=== PATIENT | male | born 1990 | race African-American/Black ===

== ENCOUNTER 2016-03-27 14:52 | Emergency (ER) | payer OTHER ==
[~2016-03-27] VITALS: Ht 177.8 cm; Wt 86.2 kg
[2016-03-27 15:16] VITALS: BP 165/102
--- NOTE | 2016-03-27 15:36 | Emergency Room Report ---
History of Present Illness General Chief Complaint: Pain Source: Patient Present Illness HPI The patient is a 26-year-old male presenting with left-sided tooth pain. The patient states that he was seen by a dentist 2 days prior for root canal and wisdom tooth removal. The patient states that he did not receive any pain medications by the dentist. Pain is now described as a 10 out of 10 dull ache to that side it does not radiate.The patient denies any other symptoms including nausea, vomiting, fever, chills, headache, blurred vision, dizziness, sore throat. Allergies: Coded Allergies: No Known Allergies (Unverified , 03/27/16) Patient History Past Medical History: see triage record Pertinent Family History: none Reviewed Nursing Documentation: PMH: Agreed, PSxH: Agreed Nursing Documentation-PMH Past Medical History: No History, Except For Review of Systems All Other Systems: negative except mentioned in HPI Physical Exam Vital Signs Date Time Temp Pulse Resp B/P Pulse Ox O2 Delivery O2 Flow Rate FiO2 03/27/16 15:16 98.8 97 18 165/102 99 Room Air Sp02 EP Interpretation: reviewed, normal General Appearance: no apparent distress, alert, GCS 15, non-toxic Head: normocephalic, atraumatic Eyes: bilateral eye PERRL, bilateral eye normal inspection ENT: hearing grossly normal, normal pharynx, no angioedema, normal voice, uvula midline, moist mucus membranes, other - L lower molars: sutures in placed. TTP. No fluctuance or erythema. No bleeding Neck: full range of motion, supple/symm/no masses Respiratory: chest non-tender, lungs clear, normal breath sounds, no wheezing, speaking full sentences Musculoskeletal: back normal, gait/station normal, normal range of motion, non- tender Neurologic: alert, oriented x3, responsive, motor strength/tone normal, sensory intact, speech normal Psychiatric: judgement/insight normal, memory normal, mood/affect normal, no suicidal/homicidal ideation Skin: normal color, no rash, warm/dry, well hydrated Lymphatic: no adenopathy Medical Decision Making PA Attestation Dr. De León is my supervising physician. Patient management was discussed with my supervising physician Diagnostic Impression: Primary Impression: Pain, dental ER Course The patient is a 26-year-old male presenting with left-sided tooth pain. Diagnoses considered but not limited to: Dental azeb, dental abscess, toothache , gingivitis PE: afebrile. NAD L lower molars: sutures in placed. TTP. No fluctuance or erythema. No bleeding. Otherwise HEENT exam is unremarkable. Uvula midline. No tonsillar edema or erythema. No lymphadenopathy The patient is given Toradol and Ringold for pain relief. The patient is discharged home with a limited prescription for pain medications and needs to see dentist for further care. ER precautions are given Last Vital Signs Date Time Temp Pulse Resp B/P Pulse Ox O2 Delivery O2 Flow Rate FiO2 03/27/16 15:16 98.8 91 18 165/102 99 Room Air Status: improved Disposition: HOME, SELF-CARE Condition: Improved Scripts Hydrocodone Bit/Acetaminophen 5-325* (NORCO 5-325 TABLET*) 1 Each Tablet 1 TAB ORAL Q6HR Y for For Pain, #15 TAB Prov: BERNARDINO CORDERO.Pedro 03/27/16 Ibuprofen* (MOTRIN*) 600 Mg Tablet 600 MG ORAL Q8H Y for For Pain, #30 TAB 0 Refills Prov: BERNARDINO CORDERO P.ASunitha 03/27/16 BERNARDINO CORDERO Mar 27, 2016 15:36
[2016-03-27] MEDS ORDERED: Norco 5mg/325mg tab ORAL ONE (15:45)
[2016-03-27] MEDS ORDERED: Ketorolac 30mg Inj IM ONE (15:45)
[2016-03-27] MEDS ORDERED: NORCO 5-325 TA1 EAC1 ORAL (15:50)
[2016-03-27] MEDS ORDERED: IBUPROFEN600 MG ORAL (15:50)
[2016-03-27 15:54] VITALS: BP 165/102
== END 2016-03-27 15:55 | disposition home or self-care (01) ==
LOC: EMR 15:43
DX: K08.89 Other specified disorders of teeth and supporting structures (principal)
CPT/HCPCS: 96372; 99284; J1885

== ENCOUNTER 2016-07-04 22:19 | Emergency (ER) | payer OTHER ==
[~2016-07-04] VITALS: Ht 177.8 cm; Wt 98.0 kg
[~2016-07-04 22:19] MED LIST: IBUPROFEN600 MG ORAL; NORCO 5-325 TA1 EAC1 ORAL
[2016-07-04 22:48] VITALS: BP 167/120
[2016-07-04] MEDS ORDERED: Lidocaine 1% 10mg/ml/Epi 0.005mg/ml 30ml vial INJ ONE (22:55)
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
[2016-07-04] MEDS ORDERED: Bacitracin Oint UD TOPIC ONE (23:30)
[2016-07-04 23:34] VITALS: BP 166/113
[2016-07-04 23:58] VITALS: BP 166/113
== END 2016-07-04 23:58 | disposition left against medical advice (07) ==
LOC: EMR 22:50
DX: S01.112A Laceration without foreign body of left eyelid and periocular area, initial encounter (principal); S00.83XA Contusion of other part of head, initial encounter; X95.9XXA Assault by unspecified firearm discharge, initial encounter; Y93.9 Activity, unspecified; Y92.9 Unspecified place or not applicable
CPT/HCPCS: 12013; 99284; Z7502

== ENCOUNTER 2018-02-01 12:53 | Emergency (ER) | payer MEDICAID, OTHER ==
[~2018-02-01] VITALS: Ht 177.8 cm; Wt 99.8 kg
[2018-02-01] MEDS ORDERED: OXYCODONE HCL15 M1 ORAL (13:14)
[2018-02-01] MEDS ORDERED: XANAX2 MG ORAL (13:14)
[2018-02-01] MEDS ORDERED: Ketorolac 30mg Inj IM ONE (13:30)
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
[2018-02-01] MEDS ORDERED: AUGMENTIN 875-1 EAC1 ORAL (14:52)
[2018-02-01] MEDS ORDERED: IBUPROFEN600 MG ORAL (14:52)
[2018-02-01] MEDS ORDERED: ROBAXIN500 MG PO (14:52)
[2018-02-01 15:00] VITALS: BP 154/98
[2018-02-01 15:03] VITALS: BP 163/108
== END 2018-02-01 15:03 | disposition home or self-care (01) ==
LOC: EMR 13:28
DX: S02.2XXA Fracture of nasal bones, initial encounter for closed fracture (principal); S80.01XA Contusion of right knee, initial encounter; S00.512A Abrasion of oral cavity, initial encounter; Y04.2XXA Assault by strike against or bumped into by another person, initial encounter; Y92.9 Unspecified place or not applicable; F41.9 Anxiety disorder, unspecified
CPT/HCPCS: 70450; 70486; 99283; J1885